=== PATIENT | female | born 1960 | race Caucasian/White ===

== ENCOUNTER → 2016-10-19 | Outpatient (CLI) | payer OTHER ==
[~2016-10-19] MED LIST: ALBUAER2 INH; CLC100 PO; HYDUNK PO; METF-384 PO; OXYC-57 PO; VALA500T60 PO
--- NOTE | 2016-10-19 16:45 | MAMMOGRAPHY REPORT ---
UNILATERAL RIGHT DIGITAL DIAGNOSTIC MAMMOGRAM TOMOSYNTHESIS WITH CAD AND TARGETED RIGHT ULTRASOUND: 10/19/2016 CLINICAL HISTORY: Six-month follow-up of right breast mass. The patient reports a strong family his tory of breast cancer in her mother, maternal grandmother, and maternal aunts. TECHNIQUE: Breast tomosynthesis in addition to standard 2D mammography was performed. Current study was also evaluated with a Computer Aided Detection (CAD) system. Right CC and MLO 2-D and tomosynt hesis images were obtained. COMPARISON: Comparison is made to exams dated: 03/19/2016 ultrasound and 03/19/2016 mammogram - [facility]. BREAST COMPOSITION: The tissue of the right breast is almost entirely fatty. FINDINGS: Again noted is a round circumscribed 3 mm mass seen within the right 6:00 breast middle d epth. The mass is stable compared to the prior March 2016 exam. Targeted ultrasound was performed of the area of the previously seen mass. In the right breast at 6 :00 periareolar region, again noted is a round circumscribed hypoechoic mass which measures 2 x 2 x 2 mm, not significantly changed compared to the March 2016 exam. This correlates with the stable radha mographic mass. The mass could represent a complicated cyst versus a solid mass such as a fibroaden candace. The options of another short interval follow-up versus core needle biopsy were discussed with the patient, and at this time we will proceed to ultrasound guided biopsy especially given the stron g family history of breast cancer. IMPRESSION: ACR BI-RADS CATEGORY 4A: LOW SUSPICION FOR MALIGNANCY, TARGETED ULTRASOUND ACR BI-RADS CATEGORY 4A: LOW SUSPICION FOR MALIGNANCY Hypoechoic 2 mm mass in the right 6:00 breast is stable compared to the March 2016 exam. The mass is indeterminate and ultrasound-guided core needle biopsy is recommended for further evaluation, espec ially given the strong family history of breast cancer. A phone call was made to the physician's office to confirm faxed results were received. The patient has been verbally notified of the results. She tentatively scheduled the biopsy before leaving the department. Approximately 10% of breast cancers are not detected with mammography. A negative mammographic repor t should not delay biopsy if a clinically suggestive mass is present. Sirisha Garcia M.D. ah/:10/19/2016 13:52:31 Director Nursing Service: Aleah SOW(Sha)(M), [facility] letter sent: Abnormal 12/08 BI-RADS Code: ACR BI-RADS Category 4A: Low Suspicion For Malignancy Ultrasound BI-RADS: ACR BI-RADS Category 4A: Low Suspicion For Malignancy
== END | disposition home or self-care (01) ==
LOC: C.MAMM 13:11
PROVIDERS: ATTEND Nurse Practitioner Family
DX: N63 Unspecified lump in breast (principal)

== ENCOUNTER → 2016-11-05 | Outpatient (CLI) | payer OTHER ==
--- NOTE | 2016-11-05 11:44 | Discharge Instructions ---
Discharge Instructions Procedure Procedure Date: Nov 05, 2016. Reason for visit: Right Mass. Discharge Discharge Date: Nov 05, 2016. Discharge Diagnosis: status post breast biopsy Instructions Activity Recommendations: Additional Limitations (see below) Return to School/Work: no limitations Recommended Home Diet: No Limitations Provider Instructions: ACTIVITY RECOMMENDATIONS: * No lifting, pushing, pulling or exercising the affected side for three days. RETURN TO SCHOOL/WORK: * You may return to work/school after the procedure, but do not perform any strenuous activities for 24 to 48 hours. MEDICATIONS: * Tylenol (two 325 mg) every four to six hours if needed for mild pain (if not allergic to Tylenol). DIET: * Resume previous diet. SPECIAL CARE INSTRUCTIONS: * Keep biopsy site dry for 24 hours. May shower after 24 hours, but do not soak (bathe) incision. * May remove Tegaderm (plastic patch) tomorrow AFTER showering. * Leave the steri-strips on for one week. Allow the steri-strips to fall off by themselves. If not off after one week, you may remove them. You may place a Bandaid crosswise over the strips, if desired. * Apply ice 10 minutes on and 10 minutes off as needed. * Wear a bra at bedtime to sleep more comfortably for 2-3 days. * Your referring physician should have the results after approximately 5 to 7 business days. * Call for unusual bleeding, fever, drainage, etc or if you have any questions call during normal business hours or after hours call Dr Garcia, [phone]. FOLLOW UP VISIT: Follow-up with Referring Physician as scheduled. Allergies Coded Allergies: Iodinated Contrast Media (Verified Allergy, Severe, ANAPHYLAXIS, 08/18/11) NUTS (Unverified Allergy, Severe, throat swells, 08/19/11) Prednisone (Verified Allergy, Severe, TACHYCARDIA, DIFFICULTY BREATHING, 08/18/11) Eliezer Tubbs Recommendations: Call your doctor if: * Temperature above 101 degrees * Pain not relieved by pain medicine ordered * There is increased drainage or redness from any incision * You have any unanswered questions or concerns. Your Doctors Instructions noted above were prepared by provider Sirisha Garcia. Patient Signature Section: Patient Instructions Signature Page Mona Swift Patient (or Guardian) Signature/Date: I have read and understand the instructions given to me by my caregivers. Caregiver/RN/Doctor Signature/Date: The above-named patient and/or guardian has received patient instructions on this date. + Original Patient Signature Page (only) stays with chart. Please make copy for patient.
--- NOTE | 2016-11-08 13:49 | MAMMOGRAPHY REPORT ---
UNILATERAL RIGHT DIGITAL DIAGNOSTIC MAMMOGRAM: 11/05/2016 CLINICAL HISTORY: Status post ultrasound-guided biopsy of the right 6:00 breast mass. TECHNIQUE: Postprocedural right CC and ML views were obtained. COMPARISON: Comparison is made to exams dated: 10/19/2016 mammogram, 10/19/2016 ultrasound, 03/19/2016 ultrasound, and 03/19/2016 mammogram - [facility]. BREAST COMPOSITION: The tissue of the right breast is almost entirely fatty. FINDINGS: A new biopsy marker clip is seen at the site of the biopsied mass in the right 6:00 breas t. No significant postbiopsy hematoma is seen. IMPRESSION: POST PROCEDURE IMAGING FOR MARKER PLACEMENT New biopsy marker clip status post ultrasound guided biopsy of the right 6:00 breast mass. Patholog y results are pending. Approximately 10% of breast cancers are not detected with mammography. A negative mammographic repor t should not delay biopsy if a clinically suggestive mass is present. Sirisha Garcia M.D. ah/:11/05/2016 11:55:12 Utilization Management Nurse: Aleah SOW(Sha)(M), [facility] BI-RADS Code: Post Procedure Imaging For Marker Placement
--- NOTE | 2016-11-08 13:49 | MAMMOGRAPHY REPORT ---
ULTRASOUND GUIDED BIOPSY RIGHT BREAST: 11/05/2016 CLINICAL HISTORY: Right 6:00 breast mass. PATIENT CONSENT: The procedure, risks and benefits were discussed with the patient and informed writ ten consent was obtained. A timeout was performed immediately prior to the procedure. PROCEDURE DESCRIPTION: With ultrasound guidance, aseptic technique, and lidocaine as the local anest hetic (1% lidocaine to anesthetize the skin and 1% lidocaine with epinephrine to anesthetize the macrina per tissues), the mass of concern in the right 6:00 breast was sampled 3 times with a 14-gauge Achie ve biopsy needle. Immediately thereafter, with ultrasound guidance, aseptic technique, and lidocain e as the local anesthetic, a metallic localizer clip was placed centrally in the mass. Direct press ure was applied to the site immediately post procedure and hemostasis was achieved. Postprocedure u nilateral mammograms were performed to confirm placement of the clip in the expected location of the breast mass. The patient tolerated the procedure without complication. She was given wound care instructions. The specimens were sent to pathology for analysis. COMPARISON: Comparison is made to exams dated: 10/19/2016 mammogram, 10/19/2016 ultrasound, 03/19/2016 ultrasound, and 03/19/2016 mammogram - [facility]. IMPRESSION: ULTRASOUND GUIDED BIOPSY Ultrasound guided core needle biopsy of the right 6:00 breast mass, with clip placement. The patien t will receive pathology results from her referring provider. Sirisha Garcia M.D. ah/:11/05/2016 11:45:38 High School Guidance Counselor: Aleah SOW(Sha)(M), [facility]
== END | disposition home or self-care (01) ==
LOC: C.MAMM 10:56
PROVIDERS: ATTEND Nurse Practitioner Family
DX: N63 Unspecified lump in breast (principal)

== ENCOUNTER → 2017-01-05 | Outpatient (CLI) | payer OTHER ==
[~2017-01-05] MED LIST changes: -CLC100 PO
--- NOTE | 2017-01-05 15:09 | DIAGNOSTIC IMAGING REPORT ---
MRI OF THE LUMBAR SPINE WITHOUT CONTRAST CLINICAL HISTORY: Low back pain radiating into the lower extremities. Radiculopathy. COMPARISON STUDY: Lumbar spine radiograph January 09, 2016. TECHNIQUE: Utilizing a 1.5 Penny magnet and dedicated coil, multiplanar, multiecho imaging of the lumbar spine was performed without IV contrast. FINDINGS: For purposes of numbering on this exam, the L5-S1 disc space is assigned to axial image 27 of 30. There is 4 mm of anterolisthesis of L3 on L4. There is slight leftward curvature of the lumbar spine. Vertebral body heights are maintained. There is no intracanalicular mass or fluid collection. Conus terminates at the lower L1 level. Paravertebral soft tissues are unremarkable. There are postsurgical findings consistent with an L5-S1 discectomy with interbody spacer placement. There are bilateral pedicle screws at the L4, L5 and S1 levels. L1-2: The central canal and neural foramen are patent. L2-3: The central canal and neural foramen are patent. L3-4: There is grade I anterolisthesis with ligamentous hypertrophy and facet arthrosis. The central canal is patent. There is mild narrowing of both neural foramen. L4-5: The central canal and neural foramen are patent. L5-S1: The central canal and neural foramen are patent. IMPRESSION: 1. Status post L5-S1 discectomy and L4-S1 fusion. 2. Grade I anterolisthesis of L3 on L4. 3. No significant central canal stenosis. 4. Mild bilateral neural foraminal stenosis at L3-L4. Electronically signed by: Cash Espinoza M.D. 01/05/2017 3:08 PM Dictated Date/Time: 01/05/2017 3:01 PM
== END | disposition home or self-care (01) ==
LOC: C.MRIBC 13:56
PROVIDERS: ATTEND Physician Assistant Medical
DX: M54.16 Radiculopathy, lumbar region (principal)